=== PATIENT | male | born 2000 | race Hispanic/Latino ===

== ENCOUNTER 2023-11-02 12:02 | Emergency (ER) | payer OTHER ==
[~2023-11-02] VITALS: Ht 193 cm; Wt 77.1 kg
[2023-11-02 12:04] VITALS: BP 154/88
[2023-11-02 12:34] LABS: SARS-CoV-2, RNA, NAAT NEGATIVE SARS CoV-2 (NEGATIVE)
[2023-11-02 12:41] LABS: INFLUENZA TYPE A Negative For Type A (NEGATIVE); INFLUENZA TYPE B Negative For Type B (NEGATIVE)
[2023-11-02] MEDS: IBUPROFEN 600 MG TABLET PO ONE (13:34)
[2023-11-02] MEDS: GUAIFENESIN-CODEINE 5 ML SYRUP PO ONE (13:34)
[2023-11-02] MEDS ORDERED: ALBU18HF7 IH (13:49)
[2023-11-02] MEDS ORDERED: medrol dose pack PO (13:49)
[2023-11-02] MEDS ORDERED: GUAI200T5 PO (13:55)
[2023-11-02] MEDS ORDERED: AZIT250T9 PO (13:59)
[2023-11-02] MEDS: ALBUTEROL 0.083% 2.5 MG/3 ML INH IH ONE (14:05)
[2023-11-02 14:06] VITALS: PULSE 93; RESP 20
== END 2023-11-02 14:23 | disposition home or self-care (01) ==
LOC: EEVIPCON 12:02 → EDH 12:02
DX: J20.8 Acute bronchitis due to other specified organisms (principal); K40.90 Unilateral inguinal hernia, without obstruction or gangrene, not specified as recurrent; F17.200 Nicotine dependence, unspecified, uncomplicated; Z20.822 Contact with and (suspected) exposure to COVID-19; Z98.890 Other specified postprocedural states; Z88.1 Allergy status to other antibiotic agents
CPT/HCPCS: 71045; 87635; 87804; 94640

== ENCOUNTER 2024-05-09 20:03 | Emergency (ER) | payer BC ==
[~2024-05-09] VITALS: Ht 190.5 cm; Wt 72.6 kg
[~2024-05-09 20:03] MED LIST: ALBU18HF7 IH; AZIT250T9 PO; GUAI200T5 PO; METH8TAB PO; medrol dose pack PO
[2024-05-09 20:48] VITALS: BP 116/65; PULSE 78; RESP 20; TEMP 98.8; O2SAT 98
[2024-05-09 21:09] LABS: COVID19 (SARS ANTIGEN RAPID) PRESUMPTIVE NEGATIVE (NEGATIVE); INFLUENZA TYPE A Negative For Type A (NEGATIVE); INFLUENZA TYPE B Negative For Type B (NEGATIVE)
--- NOTE | 2024-05-09 21:28 | ERN ---
ED Note History of Present Illness Stated Complaint: SOB Chief Complaint: Adult-Asthma Time Seen by MD: 20:04 Time Seen by Midlevel: 20:04 Dictation: The patient is a 24-year-old male with a history of asthma who presents to the emergency department with complaints of shortness of breath for three months. Patient reports occasional cough and runny nose. Denies any fevers. Reports he ran out of his albuterol treatment at home. Allergies: Coded Allergies: ceftriaxone (Unverified Allergy, Unknown, SHORTNESS OF BREATH, 11/02/23) Home Meds Active Scripts Albuterol Sulfate (Ventolin Hfa/Proventil Hfa/Proair Hfa) 90 Mcg Puff, 2 PUFF IH Q4H PRN for SHORTNESS OF BREATH/WHEEZING for 30 Days, #1 INH 0 Refills Prov:TORI BRIGGS 05/09/24 Albuterol Sulfate (Ventolin Hfa) 90 Mcg Hfa.aer.ad, 2 PUFF IH Q4HPRN PRN for wheezing for 30 Days, #18 GM 0 Refills Prov:RON COLEY MD 04/09/24 Methylprednisolone (Medrol) 8 Mg Tablet, 1 TAB PO BID for 5 Days, #10 TAB 0 Refills Prov:RON COLEY MD 04/09/24 Azithromycin (Azithromycin) 250 Mg Tablet, 250 MG PO 2 day 1 then daily for 5 Days, #6 TAB 0 Refills Prov:DANIEL LUTZ NP 11/02/23 Guaifenesin (Guaifenesin) 200 Mg Tablet, 200 MG PO q6 hour PRN for cough, #15 TAB 0 Refills Prov:DANIEL LUTZ NP 11/02/23 [medrol dose pack ] No Conflict Check, 4 MG PO DAILY for 5 Days, #1 PACK 0 Refills Prov:DANIEL LUTZ NP 11/02/23 Albuterol Sulfate (Ventolin Hfa) 90 Mcg Hfa.aer.ad, 18 GM IH 2 puffs ever 4Hr PRN for wheezing/cough, #1 INHALER 0 Refills Prov:DANIEL LUTZ NP 11/02/23 Past Medical History Past Medical History: Asthma, Other Additional Past Medical Hx: LT INGUINAL HERNIA Surgical History: None Surgical History Other: LT INGUINAL HERNIA REPAIR Social History: Smokers, Negative, Other RN Note Reviewed/Agreed w/PFSH: Yes Review of System Dictation Constitutional: Negative for fever,chills, and weight loss Eyes: Negative for injury, pain,redness, and discharge ENT: Negative for injury,pain or swelling Cardiovascular: Negative for chest pain, palpitations, and edema Respiratory: Negative for and wheezing, positive for shortness of breath, cough Abdomen/GI: Negative for abdominal pain, nausea, vomiting, diarrhea, and c onstipation Back: Negative for injury and pain : Negative for injury, bleeding and discharge MS/Extremity: Negative for injury and deformity Skin: Negative for rash, and discoloration Neuro: Negative for headache, weakness, numbness, tingling, and seizure Psych: Negative for suicide ideation, homicidal ideation, and hallucinations Initial Vital Sign VS Vital Signs Date Time Temp Pulse Resp B/P (MAP) Pulse Ox O2 Delivery O2 Flow Rate FiO2 05/09/24 20:03 98.1 63 16 139/63 100 Room Air 05/09/24 20:48 0 21 Physical Exam Dictation Vital Signs reviewed General Appearance: Alert, oriented x 3, no acute distress, well developed, nourished. Head and Face: non-traumatic. Eyes: PERRL, pink conjunctivas, eyelid no trauma, anterior chamber with arcus senilis. Ears: Pinnas intact and no signs of trauma or erythema ear canals clear and no discharge TM no erythema Nose: No discharge, no bleeding. Oropharynx: Mouth normal, tongue pink. pharynx clear,no erythema, tonsils no exudates, no abscesses noted, mucous membrane moist Neck: Supple, non-tender, no thyromegaly, no masses, no JVD, no bruits Breast:Deferred Chest:No tenderness, no crepitus, no paradoxical movement, no retractions Lungs:Clear, well-ventilated, symmetric, no rales, no wheezing, no rhonchi, no stridor, good breath sounds bilaterally Heart: Regular rate, regular rhythm, no murmur, no gallops Vascular: no peripheral edema, Abdomen: Soft, positive bowel sounds, nondistended, no guarding, nontender, no rebound, no masses no hepatomegaly, no splenomegaly, no Martinez's sign, no hernias. Rectal: Deferred Genital: Deferred Neurological: Normal speech, motor function intact, sensory function intact Musculoskeletal: Neck nontender, full range of motion, back nontender, full range of motion, Extremities: nontender, full range of motion Skin: Color pink, dry, no turgor, no rash, no lacerations, no abrasions, no contusions. Lymphatic: Deferred Results (Laboratory/Radiology) Laboratory/Radiology Laboratory Tests Test 05/09/24 20:44 Influenza Type A Antigen Negative For Type A Influenza Type B Antigen Negative For Type B SARS-CoV-2 Antigen (Rapid) PRESUMPTIVE NEGATIVE Labs Reviewed?: Yes ED Course ED Course Orders Procedure Category Date Status Time Influenza Type A & B, LAB 05/09/24 Complete Rapid 20:33 Covid19 (Sars Antigen LAB 05/09/24 Complete Rapid) 20:33 Albuterol 0.083% PHA 05/09/24 Complete 2.5mg/3ml (Proventil 21:30 Current Medications Medications (Trade) Dose Ordered Sig/Ignacio Route PRN Reason Start Time Stop Time Status Last Admin Dose Admin Albuterol Sulfate (Proventil 0.083% 2.5mg/3ml) 2.5MG ONCE ONCE IH 05/09/24 21:30 05/09/24 21:33 DC Vital Signs Date Time Temp Pulse Resp B/P (MAP) Pulse Ox O2 Delivery O2 Flow Rate FiO2 05/09/24 20:48 98.8 78 20 116/65 98 Room Air* 0 21 05/09/24 20:03 98.1 63 16 139/63 100 Room Air Medical Decision Making MDM The patient is a 24-year-old male with a history of asthma who presents to the emergency department with complaints of shortness of breath for three months. Patient reports occasional cough and runny nose. Denies any fevers. Reports he ran out of his albuterol treatment at home. Serology negative. Patient with no acute distress. No wheezing. Differential diagnosis: Pneumonia, pneumothorax, upper respiratory infection, asthma exacerbation Patient eloped from ER. DX & DISP Disposition: AMA Departure Condition: Stable Scripts Albuterol Sulfate (Ventolin Hfa/Proventil Hfa/Proair Hfa) 90 Mcg Puff 2 PUFF IH Q4H PRN for SHORTNESS OF BREATH/WHEEZING for 30 Days, #1 INH 0 Refills Prov: TORI BRIGGS 05/09/24 Referrals: [facility] [employer] (PCP) TORI BRIGGS May 09, 2024 21:28
[2024-05-09] MEDS ORDERED: ALBUTEROL 0.083% 2.5 MG/3 ML INH IH ONE (21:30)
[2024-05-09] MEDS ORDERED: ALBUHFA IH (21:31)
--- NOTE | 2024-05-09 21:58 | NUR ---
CALLED FOR XRAY. PER LILIANA FROM LAB. PT SHIELA
--- NOTE | 2024-05-09 22:00 | NUR ---
PATIENT NOT FOUND IN LOBBY, ER OR RESTROOM. NO IV IN PLACE.
--- NOTE | 2024-05-09 22:07 | NUR ---
PT CALLED, NOT IN LOBBY, NOT IN MAIN ER
== END 2024-05-09 22:08 | disposition left against medical advice (07) ==
LOC: EDH 20:03
DX: R06.02 Shortness of breath (principal); R05.9 Cough, unspecified; R09.89 Other specified symptoms and signs involving the circulatory and respiratory systems; F17.200 Nicotine dependence, unspecified, uncomplicated; J45.909 Unspecified asthma, uncomplicated; Z79.52 Long term (current) use of systemic steroids; Z88.1 Allergy status to other antibiotic agents; Z20.822 Contact with and (suspected) exposure to COVID-19
CPT/HCPCS: 87426; 87804; 99283

== ENCOUNTER 2024-08-26 19:01 | Emergency (ER) | payer SELFPAY ==
[~2024-08-26] VITALS: Ht 190.5 cm; Wt 61.2 kg
[~2024-08-26 19:01] MED LIST changes: +ALBUHFA IH; +AUD IH
--- NOTE | 2024-08-26 19:14 | ERN ---
ED Note History of Present Illness Stated Complaint: ASTHMA Time Seen by MD: :02 Time Seen by Midlevel: :02 Dictation: The patient is a 24-year-old male with a history of asthma who presents to the emergency department with complaints of shortness of breath and nasal congestion onset 5:00 p.m.. Patient is also requesting a refill for his albuterol treatment. Denies any fevers, cough, ear pain or sore throat. Allergies: Coded Allergies: ceftriaxone (Unverified Allergy, Unknown, SHORTNESS OF BREATH, 11/02/23) Home Meds Active Scripts Albuterol Sulfate (Albuterol Sulfate) 2.5 Mg/0.5 Ml Vial.neb, 2.5 MG IH Q6H for wheezing/sob, #20 INH 0 Refills Prov:ALFREDO AGRCIA DOUBLE BACKER 06/29/24 Albuterol Sulfate (Ventolin Hfa/Proventil Hfa/Proair Hfa) 90 Mcg Puff, 2 PUFF IH Q4H PRN for SHORTNESS OF BREATH/WHEEZING for 30 Days, #1 INH 0 Refills Prov:TORI BRIGGSP 05/09/24 Albuterol Sulfate (Ventolin Hfa) 90 Mcg Hfa.aer.ad, 2 PUFF IH Q4HPRN PRN for wheezing for 30 Days, #18 GM 0 Refills Prov:RON COLEY MD 04/09/24 Methylprednisolone (Medrol) 8 Mg Tablet, 1 TAB PO BID for 5 Days, #10 TAB 0 Refills Prov:RON COLEY MD 04/09/24 Azithromycin (Azithromycin) 250 Mg Tablet, 250 MG PO 2 day 1 then daily for 5 Days, #6 TAB 0 Refills Prov:DANIEL LUTZ NP 11/02/23 Guaifenesin (Guaifenesin) 200 Mg Tablet, 200 MG PO q6 hour PRN for cough, #15 TAB 0 Refills Prov:DANIEL LUTZ NP 11/02/23 [medrol dose pack ] No Conflict Check, 4 MG PO DAILY for 5 Days, #1 PACK 0 Refills Prov:DANIEL LUTZ NP 11/02/23 Albuterol Sulfate (Ventolin Hfa) 90 Mcg Hfa.aer.ad, 18 GM IH 2 puffs ever 4Hr PRN for wheezing/cough, #1 INHALER 0 Refills Prov:DANIEL LUTZ DOUBLE BACKER 11/02/23 Past Medical History Past Medical History: Asthma, Other Additional Past Medical Hx: LT INGUINAL HERNIA Surgical History: None Surgical History Other: LT INGUINAL HERNIA REPAIR Social History: Smokers, Negative, Other RN Note Reviewed/Agreed w/PFSH: Yes Review of System Dictation Constitutional: Negative for fever,chills, and weight loss Eyes: Negative for injury, pain,redness, and discharge ENT: Negative for injury,pain or swelling Cardiovascular: Negative for chest pain, palpitations, and edema Respiratory: Negative for cough, and wheezing, positive for shortness of breath Abdomen/GI: Negative for abdominal pain, nausea, vomiting, diarrhea, and constipation Back: Negative for injury and pain : Negative for injury, bleeding and discharge MS/Extremity: Negative for injury and deformity Skin: Negative for rash, and discoloration Neuro: Negative for headache, weakness, numbness, tingling, and seizure Psych: Negative for suicide ideation, homicidal ideation, and hallucinations Initial Vital Sign VS Vital Signs Date Time Temp Pulse Resp B/P (MAP) Pulse Ox O2 Delivery O2 Flow Rate FiO2 08/26/24 19:15 99.1 87 20 128/83 96 Room Air 08/26/24 19:59 0 21 Physical Exam Dictation Vital Signs reviewed General Appearance: Alert, oriented x 3, no acute distress, well developed, nourished. Head and Face: non-traumatic. Eyes: PERRL, pink conjunctivas, eyelid no trauma, anterior chamber with arcus senilis. Ears: Pinnas intact and no signs of trauma or erythema ear canals clear and no discharge TM no erythema Nose: No discharge, no bleeding. Oropharynx: Mouth normal, tongue pink. pharynx clear,no erythema, tonsils no exudates, no abscesses noted, mucous membrane moist Neck: Supple, non-tender, no thyromegaly, no masses, no JVD, no bruits Breast:Deferred Chest:No tenderness, no crepitus, no paradoxical movement, no retractions Lungs:Clear, well-ventilated, symmetric, no rales, no wheezing, no rhonchi, no stridor, good breath sounds bilaterally Heart: Regular rate, regular rhythm, no murmur, no gallops Vascular: no peripheral edema, Abdomen: Soft, positive bowel sounds, nondistended, no guarding, nontender, no rebound, no masses no hepatomegaly, no splenomegaly, no Martinez's sign, no hernias. Rectal: Deferred Genital: Deferred Neurological: Normal speech, motor function intact, sensory function intact Musculoskeletal: Neck nontender, full range of motion, back nontender, full range of motion, Extremities: nontender, full range of motion Skin: Color pink, dry, no turgor, no rash, no lacerations, no abrasions, no contusions. Lymphatic: Deferred Results (Laboratory/Radiology) Laboratory/Radiology Laboratory Tests Test 08/26/24 19:17 Influenza Type A Antigen Negative For Type A Influenza Type B Antigen Negative For Type B SARS-CoV-2 Antigen (Rapid) PRESUMPTIVE NEGATIVE REASON: sob ORDERING PHYSICIAN: TORI BRIGGS PROCEDURE: CXR1VW - CHEST 1VW CHEST 1VW HISTORY: Shortness of breath COMPARISON: 11/02/2023 FINDINGS: A frontal projection of the chest was obtained. No acute pulmonary infiltrates is seen. The heart is normal in size. Prominent interstitial markings are seen. No evidence of aortic calcification is seen. IMPRESSION: 1. No acute pulmonary infiltrate is seen. Labs Reviewed?: Yes ED Course ED Course Orders Procedure Category Date Status Time Chest 1vw RAD 08/26/24 Resulted 19:09 Covid19 (Sars Antigen LAB 08/26/24 Complete Rapid) 19:09 Influenza Type A & B, LAB 08/26/24 Complete Rapid 19:09 Albuterol 0.083% PHA 08/26/24 Complete 2.5mg/3ml (Proventil 19:30 Methylprednisolone PHA 08/26/24 Complete Succ 125mg (Solu-Medr 19:30 Current Medications Medications (Trade) Dose Ordered Sig/Ignacio Route PRN Reason Start Time Stop Time Status Last Admin Dose Admin Albuterol Sulfate (Proventil 0.083% 2.5mg/3ml) 2.5MG ONCE ONCE IH 08/26/24 19:30 08/26/24 19:31 DC Methylprednisolone Sodium Succinate (Solu-medROL 125MG) 125 mg ONCE ONCE IM 08/26/24 19:30 08/26/24 19:31 DC 08/26/24 19:54 Vital Signs Date Time Temp Pulse Resp B/P (MAP) Pulse Ox O2 Delivery O2 Flow Rate FiO2 08/26/24 19:59 98.1 80 17 145/86 98 Room Air* 0 21 08/26/24 19:15 99.1 87 20 128/83 96 Room Air Medical Decision Making MDM The patient is a 24-year-old male with a history of asthma who presents to the emergency department with complaints of shortness of breath and nasal congestion onset 5:00 p.m.. Patient is also requesting a refill for his albuterol treatment. Denies any fevers, cough, ear pain or sore throat. Serology negative. Chest x-ray showed no acute infiltrates. Patient in no acute distress, nontoxic appearance. Clear lung sounds. Patient requested refill for his albuterol treatment. Has been seen here for refill. Patient will be discharged and instructed to follow up with PCP. Differential diagnosis: Asthma exacerbation, pneumonia, pneumothorax, upper respiratory infection Need for hospitalization: Patient does not meet criteria for hospitalization. There are no social concerns with this patient. DX & DISP Disposition: Discharge Departure Impression: Primary Impression: Asthma attack Additional Impression: Encounter for medication refill Condition: Stable Scripts Albuterol Sulfate (Albuterol Sulfate) 2.5 Mg/0.5 Ml Vial.neb 2.5 MG IH Q6H for wheezing/sob, #20 INH 0 Refills Prov: TORI BRIGGS TWO NEEDLE MACHINE OPERATOR 08/26/24 Additional Instructions: Please follow up with your primary doctor in 1-2 days. Taking medications as prescribed. If symptoms worsen please return to ER. FOLLOW-UP WITH PRIMARY CARE PROVIDER IN 1 TO 2 DAYS. TAKE MEDICATIONS DIRECTED HERE IN THE EMERGENCY ROOM. OKAY TO CONTINUE HOME MEDICATIONS UNLESS OTHERWISE DISCUSSED DURING YOUR VISIT IN THE EMERGENCY ROOM TODAY. RETURN TO YOUR NEAREST EMERGENCY ROOM IF SYMPTOMS WORSEN OR IF THERE IS NO IMPROVEMENT. CALL 911 IF YOU NEED IMMEDIATE ASSISTANCE. TAKE TYLENOL OR MOTRIN [id number] NEEDED AND IF NO CONTRAINDICATIONS ARE PRESENT. INCREASE OR AL HYDRATION. A WOUND CULTURE OR URINE CULTURE WAS ORDERED HERE IN THE EMERGENCY ROOM DEPARTMENT PLEASE FOLLOW-UP WITH PRIMARY CARE PROVIDER AND ADVISE THEM TO GET REPEAT PORTS FROM OUR FACILITY. IF YOU HAD ANY HARINI WRAP/SPLINTS THAT WERE APPLIED HERE, PLEASE DO NOT REMOVE THEM UNTIL YOU SEE YOUR PRIMARY CARE OR SPECIALTY. Referrals: [facility] (PCP) Time of Disposition: 20:29 I have reviewed the case, and I agree with, Diagnosis and Plan TORI BRIGGS [facility] August 26, 2024 19:14
--- NOTE | 2024-08-26 19:51 | NUR ---
PT CARE ASSUMED AT THIS TIME
[2024-08-26 19:53] LABS: COVID19 (SARS ANTIGEN RAPID) PRESUMPTIVE NEGATIVE (NEGATIVE); INFLUENZA TYPE A Negative For Type A (NEGATIVE); INFLUENZA TYPE B Negative For Type B (NEGATIVE)
[2024-08-26] MEDS: Solu-medROL 125MG VIAL IM ONE (19:54)
--- NOTE | 2024-08-26 20:23 | HMCIMG ---
CHEST 1VW HISTORY: Shortness of breath COMPARISON: 11/02/2023 FINDINGS: A frontal projection of the chest was obtained. No acute pulmonary infiltrates is seen. The heart is normal in size. Prominent interstitial markings are seen. No evidence of aortic calcification is seen. IMPRESSION: 1. No acute pulmonary infiltrate is seen.
[2024-08-26] MEDS ORDERED: AUD IH (20:31)
[2024-08-26] MEDS: ALBUTEROL 0.083% 2.5 MG/3 ML INH IH ONE (20:47)
[2024-08-26 20:48] VITALS: PULSE 78; RESP 20
[2024-08-26 20:55] VITALS: BP 138/74; PULSE 69; RESP 18; TEMP 98.1; O2SAT 100
== END 2024-08-26 21:06 | disposition home or self-care (01) ==
LOC: EDH 19:01
DX: J45.909 Unspecified asthma, uncomplicated (principal); F17.200 Nicotine dependence, unspecified, uncomplicated; Z79.52 Long term (current) use of systemic steroids; Z88.1 Allergy status to other antibiotic agents; Z76.0 Encounter for issue of repeat prescription; Z20.822 Contact with and (suspected) exposure to COVID-19
CPT/HCPCS: 99284; 71045; 87426; 87804 ×2; 96372; 94640; J2919

== ENCOUNTER 2024-10-23 06:53 | Emergency (ER) | payer SELFPAY ==
[~2024-10-23] VITALS: Ht 190.5 cm; Wt 60.3 kg
--- NOTE | 2024-10-23 07:13 | NUR ---
AT THIS TIME NO SIGNS OR SYMPTOMS OF ACUTE RESPIRATORY DISTRESS
--- NOTE | 2024-10-23 07:23 | ERN ---
General Chief Complaint: Adult-Asthma Stated Complaint: C/O PROBLEM BREATHING, ASTHMA Time Seen by MD: 07:00 Source: patient History of Present Illness Initial Comments Patient is a 24-year-old male coming in because he ran out of his inhaler. Patient states he works a lot of hours in his not been able to fill his prescription of breathing treatments. He also states that he was having a mild cough in his here for further evaluation. No fever or chills no nausea no vomiting. Allergies: Coded Allergies: ceftriaxone (Unverified Allergy, Unknown, SHORTNESS OF BREATH, 11/02/23) Home Meds Active Scripts Albuterol Sulfate (Albuterol Sulfate) 2.5 Mg/0.5 Ml Vial.neb, 2.5 MG IH Q6H for wheezing/sob, #20 INH 0 Refills Prov:TORI BRIGGS TEST RIDER 08/26/24 Albuterol Sulfate (Albuterol Sulfate) 2.5 Mg/0.5 Ml Vial.neb, 2.5 MG IH Q6H for wheezing/sob, #20 INH 0 Refills Prov:ALFREDO GARCIA FRUIT DUMPER 06/29/24 Albuterol Sulfate (Ventolin Hfa/Proventil Hfa/Proair Hfa) 90 Mcg Puff, 2 PUFF IH Q4H PRN for SHORTNESS OF BREATH/WHEEZING for 30 Days, #1 INH 0 Refills Prov:TORI BRIGGS TEST RIDER 05/09/24 Albuterol Sulfate (Ventolin Hfa) 90 Mcg Hfa.aer.ad, 2 PUFF IH Q4HPRN PRN for wh eezing for 30 Days, #18 GM 0 Refills Prov:RON COLEY MD 04/09/24 Methylprednisolone (Medrol) 8 Mg Tablet, 1 TAB PO BID for 5 Days, #10 TAB 0 Refills Prov:RON COLEY MD 04/09/24 Azithromycin (Azithromycin) 250 Mg Tablet, 250 MG PO 2 day 1 then daily for 5 Days, #6 TAB 0 Refills Prov:DANIEL LUTZ NP 11/02/23 Guaifenesin (Guaifenesin) 200 Mg Tablet, 200 MG PO q6 hour PRN for cough, #15 TAB 0 Refills Prov:DANIEL LUTZ NP 11/02/23 [medrol dose pack ] No Conflict Check, 4 MG PO DAILY for 5 Days, #1 PACK 0 Refills Prov:DANIEL LUTZ FRUIT DUMPER 11/02/23 Albuterol Sulfate (Ventolin Hfa) 90 Mcg Hfa.aer.ad, 18 GM IH 2 puffs ever 4Hr PRN for wheezing/cough, #1 INHALER 0 Refills Prov:DANIEL LUTZ FRUIT DUMPER 11/02/23 Past Medical History Past Medical History: Asthma Medical History Other: LT INGUINAL HERNIA Past Surgical History: Other Surgical History Other: HERNIA REPAIR Social History Social History: Smokers, Negative, Other ROS Dictation CONSTITUTIONAL: No chills, no fever, no weakness, no diaphoresis, no malaise. HEAD/FACE: No signs of trauma. EENT: No eye pain, no blurred vision, no tearing, no double vision, no ear pain, no ear discharge, no nose pain, no nasal congestion, no throat pain, no throat swelling, no mouth pain. RESPIRATORY: cough, no orthopnea, no SOB, no stridor, no wheezing. CARDIOVASCULAR: No chest pain, no edema, no palpitations, no syncope. GASTROINTESTINAL/ABDOMINAL: No abdominal pain, no constipation, no diarrhea, no nausea, no vomiting. GENITOURINARY: No abnormal discharge, no dysuria, no frequent urination, no hematuria. No complaints of pain in the genitals. MUSCULOSKELETAL: No back pain, no gout, no joint pain, no joint swelling, no muscle pain, no muscle stiffness, no neck pain. INTEGUMENTARY: No change in color, no change in hair/nails, no dryness, no lesion, no lumps, no rash. NEUROLOGICAL/PSYCH: No anxiety, not depressed, no emotional problem, no headache, no numbness, no pre-existing deficit, no history of seizures, no tremors, no weakness. HEMATOLOGIC/LYMPHATIC: Not anemic, no history of blood clots, no apparent bleeding, no bruising, glands not swollen. All Systems Negative, Except as Noted. Physical Exam Physical Exam Dictation VITAL SIGNS: Reviewed. GENERAL APPEARANCE: Alert, oriented x3, no acute distress, obese. HEAD AND FACE: Non-traumatic. EYES: PERRL, pink conjunctivas, eyelid no trauma, anterior chamber clear. EARS: Pinnas intact and no signs of trauma or erythema. Ear canals clear and no discharge. TMs no erythema. NOSE: No discharge, no bleeding. OROPHARYNX: Mouth normal, teeth no caries, tongue pink. Pharynx clear, no eryt abdi. Tonsils no exudates, no abscesses noted. Mucous membrane moist. NECK: Supple, non-tender, no thyromegaly, no masses, no JVD, no bruits. BREAST: Deferred. CHEST: No tenderness, no crepitus, no paradoxical movement, no retractions. LUNGS: Clear, well-ventilated, symmetric, no rales, no wheezing, no rhonchi, no stridor, good breath sounds bilaterally. HEART: Regular rate, regular rhythm, no murmur, no gallops. VASCULAR: No peripheral edema. ABDOMEN: Soft, positive bowel sounds, nondistended, no guarding, nontender, no rebound, no masses no hepatomegaly, no splenomegaly, no Martinez's sign, no hernias. RECTAL: Deferred. GENITAL: Deferred. NEUROLOGICAL: Normal speech, gross motor function intact, gross sensory function intact. MUSCULOSKELETAL: Neck nontender, full range of motion, back nontender, full range of motion. EXTREMITIES: Nontender, full range of motion. SKIN: Color pink, dry, no turgor, no rash, no lacerations, no abrasions, no contusions. LYMPHATICS: Deferred. Results Laboratory and Microbiology Labs Reviewed?: Yes MDM MDM: Differential diagnosis: History of asthma, cough, URI, Rationale: Tests considered and ordered secondary to shared decision making include: Previous outside records reviewed: Old ER visits. Risk of complication and/or morbidity or mortality of patient management: None Medications-Per medication reconciliation Need for hospitalization: Patient does not meet criteria for hospitalization. Patient is a 24-year-old male coming in to be evaluated for what he states is chronic condition. He states he has a had asthma for a while but has not had a chance to fill his prescription of albuterol because he has not been able to go to his doctor. He states that a couple of days ago he started having a mild cough. On physical exam lungs sound clear mild tightness at times breathing treatment was given did advised him appropriate follow up with PCP for long-term management. Patient will be discharged in stable condition. ED Course Orders Procedure Category Date Status Time Ipratropium/Albuterol PHA 10/23/24 In Process Neb (Amena) 07:30 Current Medications Medications (Trade) Dose Ordered Sig/Ignacio Route PRN Reason Start Time Stop Time Status Last Admin Dose Admin Albuterol (DUOneb) 1 udvial ONCE ONCE IH 10/23/24 07:30 10/23/24 07:31 Vital Signs Date Time Temp Pulse Resp B/P (MAP) Pulse Ox O2 Delivery O2 Flow Rate FiO2 10/23/24 06:55 98.8 77 20 157/76 100 Room Air DX & DISP Disposition: Discharge Departure Impression: Primary Impression: History of asthma Condition: Stable Additional Instructions: FOLLOW-UP WITH PRIMARY CARE PROVIDER IN 1 TO 2 DAYS. TAKE MEDICATIONS DIRECTED HERE IN THE EMERGENCY ROOM. OKAY TO CONTINUE HOME MEDICATIONS UNLESS OTHERWISE DISCUSSED DURING YOUR VISIT IN THE EMERGENCY ROOM TODAY. RETURN TO YOUR NEAREST EMERGENCY ROOM IF SYMPTOMS WORSEN OR IF THERE IS NO IMPROVEMENT. CALL 911 IF YOU NEED IMMEDIATE ASSISTANCE. TAKE TYLENOL [id number] NEEDED AND IF NO CONTRAINDICATIONS ARE PRESENT. INCREASE ORAL HYDRATION. A WOUND CULTURE OR URINE CULTURE WAS ORDERED HERE IN THE EMERGENCY ROOM DEPARTMENT PLEASE FOLLOW-UP WITH PRIMARY CARE PROVIDER AND ADVISE THEM TO GET REPORTS FROM OUR FACILITY. IF YOU HAD ANY HARINI WRAP/SPLINTS THAT WERE APPLIED HERE, PLEASE DO NOT REMOVE THEM UNTIL YOU SEE YOUR PRIMARY CARE OR SPECIALTY. Referrals: Referrals: SELF,REFERRAL (PCP) TERRI JAY MD Time of Disposition: 07:00 RON COLEY MD Oct 23, 2024 07:23
[2024-10-23 07:48] VITALS: BP 149/70; TEMP 98.8; O2SAT 100
[2024-10-23 08:02] VITALS: PULSE 68; RESP 18
[2024-10-23] MEDS: ALBUTEROL INHALER 90MCG/INH IH ONE (08:09)
[2024-10-23] MEDS ORDERED: INHALER, ASSIST DEVICE 1 EA IH SCH (08:30)
== END 2024-10-23 08:10 | disposition home or self-care (01) ==
LOC: EDH 06:53 → EEVIPCON 06:53 → EDH 08:10
DX: J45.909 Unspecified asthma, uncomplicated (principal); F17.200 Nicotine dependence, unspecified, uncomplicated; Z79.52 Long term (current) use of systemic steroids; Z88.1 Allergy status to other antibiotic agents; Z98.890 Other specified postprocedural states
CPT/HCPCS: 94640; 99283

== ENCOUNTER → 2025-02-05 | Emergency (ER) | payer SELFPAY ==
[~2025-02-05] VITALS: Ht 190.5 cm; Wt 83.9 kg
[2025-02-05 16:31] VITALS: BP 140/75; PULSE 79; RESP 20; TEMP 97.6; O2SAT 99
--- NOTE | 2025-02-05 16:33 | ERN ---
ED Note History of Present Illness Stated Complaint: ASTHMA EXACERBATION Chief Complaint: Adult-Asthma Time Seen by MD: 16:26 Dictation: PATIENT IS A 25-YEAR-OLD MALE WHO IS WELL KNOWN TO [facility] COMPLAINING OF RUNNING OUT OF HIS EMERGENCY INHALER REFILL THREE DAYS AGO. 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 SAID HE RAN OUT THREE DAYS AGO. NO FEVER NO CHILLS NO NAUSEA VOMITING NO COUGH. HE DOES NOT HAVE A PRIMARY CARE DOCTOR BECAUSE HE JUST GOT OUT OF RETIREMENT AND DOES NOT HAVE INSURANCE OR A MEANS TO PAY FOR HIS HEALTH CARE. BILATERAL BREATH SOUNDS CLEAR TO AUSCULTATION SATURATION 99-100% IN TRIAGE. Allergies: Coded Allergies: ceftriaxone (Unverified Allergy, Unknown, SHORTNESS OF BREATH, 11/02/23) Home Meds Active Scripts Albuterol Sulfate (Albuterol Sulfate) 2.5 Mg/0.5 Ml Vial.neb, 2.5 MG IH Q6H for wheezing/sob, #20 INH 0 Refills Prov:TORI BRIGGS [facility] 08/26/24 Albuterol Sulfate (Albuterol Sulfate) 2.5 Mg/0.5 Ml Vial.neb, 2.5 MG IH Q6H for wheezing/sob, #20 INH 0 Refills Prov:ALFREDO GARCIA MANAGER EMBAL[employer] FUNERAL DIRECTOR 06/29/24 Albuterol Sulfate (Ventolin Hfa/Proventil Hfa/Proair Hfa) 90 Mcg Puff, 2 PUFF IH Q4H PRN for SHORTNESS OF BREATH/WHEEZING for 30 Days, #1 INH 0 Refills Prov:TORI BRIGGS [facility] 05/09/24 Albuterol Sulfate (Ventolin Hfa) 90 Mcg Hfa.aer.ad, 2 PUFF IH Q4HPRN PRN for wheezing for 30 Days, #18 GM 0 Refills Prov:RON COLEY MD 04/09/24 Methylprednisolone (Medrol) 8 Mg Tablet, 1 TAB PO BID for 5 Days, #10 TAB 0 Refills Prov:RON COLEY MD 04/09/24 Azithromycin (Azithromycin) 250 Mg Tablet, 250 MG PO 2 day 1 then daily for 5 Days, #6 TAB 0 Refills Prov:DANIEL LUTZ [facility] 11/02/23 Guaifenesin (Guaifenesin) 200 Mg Tablet, 200 MG PO q6 hour PRN for cough, #15 TAB 0 Refills Prov:DANIEL LUTZ [facility] 11/02/23 [medrol dose pack ] No Conflict Check, 4 MG PO DAILY for 5 Days, #1 PACK 0 Refills Prov:DNAIEL LUTZ [facility] 11/02/23 Albuterol Sulfate (Ventolin Hfa) 90 Mcg Hfa.aer.ad, 18 GM IH 2 puffs ever 4Hr PRN for wheezing/cough, #1 INHALER 0 Refills Prov:DANIEL LUTZ [facility] 11/02/23 Past Medical History Past Medical History: Asthma Additional Past Medical Hx: LT INGUINAL HERNIA Surgical History: None Surgical History Other: HERNIA SX Social History: Smokers, Negative, Other RN Note Reviewed/Agreed w/PFSH: Yes Review of System Dictation CONSTITUTIONAL: NEGATIVE EXCEPT FOR HPI HEAD/FACE: NEGATIVE EXCEPT FOR HPI EENT: NEGATIVE EXCEPT FOR HPI RESPIRATORY: NEGATIVE EXCEPT FOR HPI GASTROINTESTINAL/ABDOMINAL: NEGATIVE EXCEPT FOR HPI GENITOURINARY: NEGATIVE EXCEPT FOR HPI MUSCULOSKELETAL: NEGATIVE EXCEPT FOR HPI INTEGUMENTARY: NEGATIVE EXCEPT FOR HPI NEUROLOGICAL/PSYCH: NEGATIVE EXCEPT FOR HPI HEMATOLOGIC/LYMPHATIC: NEGATIVE EXCEPT FOR HPI ALL SYSTEMS NEGATIVE, EXCEPT NOTED ABOVE. 13 POINT REVIEW OF SYSTEMS ASSESSED AND ALL NEGATIVE EXCEPT FOR ABOVE. Initial Vital Sign VS Vital Signs Date Time Temp Pulse Resp B/P (MAP) Pulse Ox O2 Delivery O2 Flow Rate FiO2 02/05/25 16:25 97.5 79 20 140/75 99 Room Air Physical Exam Dictation VITAL SIGNS REVIEWED GENERAL APPEARANCE: ALERT, ORIENTED X 3, NO ACUTE DISTRESS, WELL DEVELOPED, NOURISHED. HEAD AND FACE: NON-TRAUMATIC. EYES: PERRL, PINK CONJUNCTIVAS, EYELID NO TRAUMA, ANTERIOR CHAMBER WITH ARCUS SENILIS. EARS: PINNAS INTACT AND NO SIGNS OF TRAUMA OR ERYTHEMA EAR CANALS CLEAR AND NO DISCHARGE TM NO ERYTHEMA NOSE: NO DISCHARGE, NO BLEEDING. OROPHARYNX: MOUTH NORMAL, TONGUE PINK, PHARYNX CLEAR,NO ERYTHEMA, TONSILS NO EXUDATES, NO ABSCESSES NOTED, MUCOUS MEMBRANE MOIST NECK: SUPPLE, NON-TENDER, NO THYROMEGALY, NO MASSES, NO JVD, NO BRUITS BREAST:DEFERRED CHEST:NO TENDERNESS, NO CREPITUS, NO PARADOXICAL MOVEMENT, NO RETRACTIONS LUNGS:CLEAR, WELL-VENTILATED, SYMMETRIC, NO RALES, NO WHEEZING, NO RHONCHI, NO STRIDOR, GOOD BREATH SOUNDS BILATERALLY HEART: REGULAR RATE, REGULAR RHYTHM, NO MURMUR, NO GALLOPS VASCULAR: NO PERIPHERAL EDEMA, ABDOMEN: SOFT, POSITIVE BOWEL SOUNDS, NONDISTENDED, NO GUARDING, NONTENDER, NO REBOUND, NO MASSES NO HEPATOMEGALY, NO SPLENOMEGALY, NO PALACIOS'S SIGN, NO HERNIAS. RECTAL: DEFERRED GENITAL: DEFERRED NEUROLOGICAL: NORMAL SPEECH, MOTOR FUNCTION INTACT, SENSORY FUNCTION INTACT MUSCULOSKELETAL: NECK NONTENDER, FULL RANGE OF MOTION, BACK NONTENDER, FULL RANGE OF MOTION, EXTREMITIES: NONTENDER, FULL RANGE OF MOTION SKIN: COLOR PINK, DRY, NO TURGOR, NO RASH, NO LACERATIONS, NO ABRASIONS, NO CONTUSIONS. LYMPHATIC: DEFERRED Results (Laboratory/Radiology) Labs Reviewed?: Yes ED Course ED Course Vital Signs Date Time Temp Pulse Resp B/P (MAP) Pulse Ox O2 Delivery O2 Flow Rate FiO2 02/05/25 16:25 97.5 79 20 140/75 99 Room Air 1630/NO LABS OR IMAGING INDICATED. PATIENT HERE FOR ENCOUNTER FOR MEDICATION REFILL WE WILL BE GIVEN ALBUTEROL AND TOLD TO SEE HIS DOCTOR. PRIMARY CARE DOCTORS ON STAFF LIST WAS PROVIDED TO PATIENT Medical Decision Making MDM MEDICAL DECISION-MAKING BASED ON ENCOUNTER FOR MEDICATION REFILL NO IMAGING OR LABS INDICATED PATIENT DISCHARGED HOME WITH A ALBUTEROL REFILL DX & DISP Disposition: Discharge Departure Impression: Primary Impression: Encounter for medication refill Additional Impression: History of asthma Condition: Stable Scripts Albuterol Sulfate (Ventolin Hfa/Proventil Hfa/Proair Hfa) 90 Mcg Puff 2 PUFF IH Q4H for WHEEZING, #1 INHALER 1 Refill Prov: ALFREDO GARCIA 02/05/25 Additional Instructions: FOLLOW-UP WITH PRIMARY CARE PROVIDER IN 1 TO 2 DAYS. TAKE MEDICATIONS DIRECTED HERE IN THE EMERGENCY ROOM. OKAY TO CONTINUE HOME MEDICATIONS UNLESS OTHERWISE DISCUSSED DURING YOUR VISIT IN THE EMERGENCY ROOM TODAY. RETURN TO YOUR NEAREST EMERGENCY ROOM IF SYMPTOMS WORSEN OR IF THERE IS NO IMPROVEMENT. CALL 911 IF YOU NEED IMMEDIATE ASSISTANCE. TAKE TYLENOL OR MOTRIN OVER-THE-C OUNTER NEEDED AND IF NO CONTRAINDICATIONS ARE PRESENT. INCREASE ORAL HYDRATION. A WOUND CULTURE OR URINE CULTURE WAS ORDERED HERE IN THE EMERGENCY ROOM DEPARTMENT PLEASE FOLLOW-UP WITH PRIMARY CARE PROVIDER AND ADVISE THEM TO GET REPEAT PORTS FROM OUR FACILITY. IF YOU HAD ANY HARINI WRAP/SPLINTS THAT WERE APPLIED HERE, PLEASE DO NOT REMOVE THEM UNTIL YOU SEE YOUR PRIMARY CARE OR SPECIALTY. Referrals: SELF,REFERRAL (PCP) Time of Disposition: 16:32 I have reviewed the case, and I agree with, Diagnosis and Plan ALFREDO GARCIA MANAGER EMBALMER FUNERAL DIRECTOR Feb 05, 2025 16:33
== END ==
LOC: EDH 16:24
DX: J45.909 Unspecified asthma, uncomplicated (principal); F17.200 Nicotine dependence, unspecified, uncomplicated; Z76.0 Encounter for issue of repeat prescription; Z88.1 Allergy status to other antibiotic agents; Z79.52 Long term (current) use of systemic steroids
CPT/HCPCS: 99282

== ENCOUNTER 2025-02-27 07:13 | Emergency (ER) | payer SELFPAY ==
[~2025-02-27] VITALS: Ht 190.5 cm; Wt 74.8 kg
--- NOTE | 2025-02-27 07:16 | NUR ---
PT IN ROOM
--- NOTE | 2025-02-27 07:28 | ERN ---
General Chief Complaint: Adult-Asthma Stated Complaint: SOB/ ASTHMA ATTACK Time Seen by MD: 07:16 Source: patient History of Present Illness Initial Comments Patient is a 25-year-old male coming in stating he ran out of his asthma medication. He states that he has been having a mild asthma attack in his here for further evaluation. Allergies: Coded Allergies: ceftriaxone (Unverified Allergy, Unknown, SHORTNESS OF BREATH, 11/02/23) Home Meds Active Scripts Albuterol Sulfate (Ventolin Hfa/Proventil Hfa/Proair Hfa) 90 Mcg Puff, 2 PUFF IH Q4H for WHEEZING, #1 INHALER 1 Refill Prov:ALFREDO GARCIA [employer] SERV[employer] TECHNICIAN 02/05/25 Albuterol Sulfate (Albuterol Sulfate) 2.5 Mg/0.5 Ml Vial.neb, 2.5 MG IH Q6H for wheezing/sob, #20 INH 0 Refills Prov:TORI BRIGGS [employer] SERV[employer] TECHNICIAN 08/26/24 Albuterol Sulfate (Albuterol Sulfate) 2.5 Mg/0.5 Ml Vial.neb, 2.5 MG IH Q6H for wheezing/sob, #20 INH 0 Refills Prov:ALFREDO GARCIA [employer] SERVICE TECHNICIAN 06/29/24 Albuterol Sulfate (Ventolin Hfa/Proventil Hfa/Proair Hfa) 90 Mcg Puff, 2 PUFF IH Q4H PRN for SHORTNESS OF BREATH/WHEEZING for 30 Days, #1 INH 0 Refills Prov:TORI BRIGGS [employer] SERV[employer] TECHNICIAN 05/09/24 Albuterol Sulfate (Ventolin Hfa) 90 Mcg Hfa.aer.ad, 2 PUFF IH Q4HPRN PRN for wheezing for 30 Days, #18 GM 0 Refills Prov:RON COLEY MD 04/09/24 Methylprednisolone (Medrol) 8 Mg Tablet, 1 TAB PO BID for 5 Days, #10 TAB 0 Refills Prov:RON COLEY MD 04/09/24 Azithromycin (Azithromycin) 250 Mg Tablet, 250 MG PO 2 day 1 then daily for 5 Days, #6 TAB 0 Refills Prov:DANIEL LUTZP 11/02/23 Guaifenesin (Guaifenesin) 200 Mg Tablet, 200 MG PO q6 hour PRN for cough, #15 TAB 0 Refills Prov:DANIEL LUTZ [facility] 11/02/23 [medrol dose pack ] No Conflict Check, 4 MG PO DAILY for 5 Days, #1 PACK 0 R efills Prov:DANIEL LUTZ [facility] 11/02/23 Albuterol Sulfate (Ventolin Hfa) 90 Mcg Hfa.aer.ad, 18 GM IH 2 puffs ever 4Hr PRN for wheezing/cough, #1 INHALER 0 Refills Prov:DANIEL LUTZ [facility] 11/02/23 Past Medical History Past Medical History: Asthma Medical History Other: LT INGUINAL HERNIA Past Surgical History: None Surgical History Other: HERNIA SX Social History Social History: Smokers, Negative, Other ROS Dictation CONSTITUTIONAL: No chills, no fever, no weakness, no diaphoresis, no malaise. HEAD/FACE: No signs of trauma. EENT: No eye pain, no blurred vision, no tearing, no double vision, no ear pain, no ear discharge, no nose pain, no nasal congestion, no throat pain, no throat swelling, no mouth pain. RESPIRATORY: No cough, no orthopnea, SOB, no stridor, wheezing. CARDIOVASCULAR: No chest pain, no edema, no palpitations, no syncope. GASTROINTESTINAL/ABDOMINAL: No abdominal pain, no constipation, no diarrhea, no nausea, no vomiting. GENITOURINARY: No abnormal discharge, no dysuria, no frequent urination, no hematuria. No complaints of pain in the genitals. MUSCULOSKELETAL: No back pain, no gout, no joint pain, no joint swelling, no muscle pain, no muscle stiffness, no neck pain. INTEGUMENTARY: No change in color, no change in hair/nails, no dryness, no lesion, no lumps, no rash. NEUROLOGICAL/PSYCH: No anxiety, not depressed, no emotional problem, no headache, no numbness, no pre-existing deficit, no history of seizures, no tremors, no weakness. HEMATOLOGIC/LYMPHATIC: Not anemic, no history of blood clots, no apparent bleeding, no bruising, glands not swollen. All Systems Negative, Except as Noted. Physical Exam Physical Exam Dictation VITAL SIGNS: Reviewed. GENERAL APPEARANCE: Alert, oriented x3, no acute distress, obese. HEAD AND FACE: Non-traumatic. EYES: PERRL, pink conjunctivas, eyelid no trauma, anterior chamber clear. EARS: Pinnas intact and no signs of trauma or erythema. Ear canals clear and no discharge. TMs no erythema. NOSE: No discharge, no bleeding. OROPHARYNX: Mouth normal, teeth no caries, tongue pink. Pharynx clear, no erythema. Tonsils no exudates, no abscesses noted. Mucous membrane moist. NECK: Supple, non-tender, no thyromegaly, no masses, no JVD, no bruits. BREAST: Deferred. CHEST: No tenderness, no crepitus, no paradoxical movement, no retractions. LUNGS: Clear, well-ventilated, symmetric, no rales, wheezing, no rhonchi, no stridor, good breath sounds bilaterally. HEART: Regular rate, regular rhythm, no murmur, no gallops. VASCULAR: No peripheral edema. ABDOMEN: Soft, positive bowel sounds, nondistended, no guarding, nontender, no rebound, no masses no hepatomegaly, no splenomegaly, no Martinez's sign, no herni as. RECTAL: Deferred. GENITAL: Deferred. NEUROLOGICAL: Normal speech, gross motor function intact, gross sensory function intact. MUSCULOSKELETAL: Neck nontender, full range of motion, back nontender, full range of motion. EXTREMITIES: Nontender, full range of motion. SKIN: Color pink, dry, no turgor, no rash, no lacerations, no abrasions, no contusions. LYMPHATICS: Deferred. Results Laboratory and Microbiology Labs Reviewed?: Yes MDM MDM: Differential diagnosis: Medication refill, history of asthma, Rationale: Tests considered and ordered secondary to shared decision making include: Previous outside records reviewed: Old ER visits. Risk of complication and/or morbidity or mortality of patient management: None Medications-Per medication reconciliation Need for hospitalization: Patient does not meet criteria for hospitalization. Need for emergency major/minor surgery: No Patient is a 25-year-old male coming in complaining of shortness of breath. He states he has a history wheezing but ran out of his medication. Patient received one breathing treatment and medication was refilled. We will be discharged in stable condition. ED Course Orders Procedure Category Date Status Time Albuterol 0.083% PHA 02/27/25 Transmitted 2.5mg/3ml (Proventil 07:30 DX & DISP Disposition: Discharge Departure Impression: Primary Impression: Encounter for medication refill Additional Impression: History of asthma Condition: Stable Scripts Albuterol Sulfate (Ventolin Hfa) 90 Mcg Hfa.aer.ad 2 PUFF IH Q4HPRN PRN for wheezing for 30 Days, #18 GM 0 Refills Prov: RON COLEY MD 02/27/25 Additional Instructions: FOLLOW-UP WITH PRIMARY CARE PROVIDER IN 1 TO 2 DAYS. TAKE MEDICATIONS DIRECTED HERE IN THE EMERGENCY ROOM. OKAY TO CONTINUE HOME MEDICATIONS UNLESS OTHERWISE DISCUSSED DURING YOUR VISIT IN THE EMERGENCY ROOM TODAY. RETURN TO YOUR NEAREST EMERGENCY ROOM IF SYMPTOMS WORSEN OR IF THERE IS NO IMPROVEMENT. CALL 911 IF YOU NEED IMMEDIATE ASSISTANCE. TAKE TYLENOL [id number] NEEDED AND IF NO CONTRAINDICATIONS ARE PRESENT. INCREASE ORAL HYDRATION. A WOUND CULTURE OR URINE CULTURE WAS ORDERED HERE IN THE EMERGENCY ROOM DEPARTMENT PLEASE FOLLOW-UP WITH PRIMARY CARE PROVIDER AND ADVISE THEM TO GET REPORTS FROM OUR FACILITY. IF YOU HAD ANY HARINI WRAP/SPLINTS THAT WERE APPLIED HERE, PLEASE DO NOT REMOVE THEM UNTIL YOU SEE YOUR PRIMARY CARE OR SPECIALTY. Referrals: Referrals: SELF,REFERRAL (PCP) TERRI JAY MD Time of Disposition: 07:27 RON COLEY MD Feb 27, 2025 07:28
[2025-02-27 07:38] VITALS: PULSE 78; RESP 18
[2025-02-27] MEDS: ALBUTEROL 0.083% 2.5 MG/3 ML INH IH ONE (07:38)
[2025-02-27 07:46] VITALS: BP 118/47; PULSE 77; RESP 20; TEMP 98.3; O2SAT 99
--- NOTE | 2025-02-27 07:46 | NUR ---
PT AAOX4, STABLE STATES HE CAN BREATHE BETTER AFTER RESP TREATMENT, PT GIVEN RX TO DROP OFF TO PHARMACY WILL START MEDICATION TODAY, NO IV AT THIS TIME, PT WALKED OUT TO ED LOBBY DROVE HIMSELF HOME.
== END 2025-02-27 07:48 | disposition home or self-care (01) ==
LOC: EDH 07:13
DX: J45.909 Unspecified asthma, uncomplicated (principal); Z76.0 Encounter for issue of repeat prescription; F17.200 Nicotine dependence, unspecified, uncomplicated; Z88.1 Allergy status to other antibiotic agents; Z79.52 Long term (current) use of systemic steroids
CPT/HCPCS: 94640; 99283

== ENCOUNTER 2025-03-14 06:54 | Emergency (ER) | payer SELFPAY ==
[~2025-03-14] VITALS: Ht 190.5 cm; Wt 83.9 kg
--- NOTE | 2025-03-14 07:03 | NUR ---
PATIENT IN ROOM
[2025-03-14 07:50] VITALS: PULSE 77; RESP 18
--- NOTE | 2025-03-14 07:56 | HMCIMG ---
EXAM: CR Chest, 2 View. CLINICAL HISTORY: ASTHMA COMPARISON: None provided. FINDINGS: LUNGS: There is no mass, infiltrate, or acute pulmonary abnormality. PLEURAL SPACES: No pleural effusion or pneumothorax. MEDIASTINUM: Cardiac size and mediastinal contours within normal limits. BONES: No aggressive appearing osseous lesion seen. IMPRESSION: No acute cardiopulmonary pathology is evident. /[place]
[2025-03-14 08:04] LABS: SARS-CoV-2, RNA, NAAT NEGATIVE SARS CoV-2 (NEGATIVE)
[2025-03-14 08:09] LABS: INFLUENZA TYPE A Negative For Type A (NEGATIVE); INFLUENZA TYPE B Negative For Type B (NEGATIVE)
[2025-03-14] MEDS ORDERED: ALBU18HF7 IH (08:12)
--- NOTE | 2025-03-14 08:13 | ERN ---
General Chief Complaint: Adult-Asthma Stated Complaint: SHORTNESS OF BREATH Time Seen by MD: 07:07 Source: patient History of Present Illness Initial Comments Patient is a 25-year-old male coming in complaining of shortness of breath. Patient does state that he uses inhaler and per ran out in his here for further evaluation. Patient has a history of asthma. Allergies: Coded Allergies: ceftriaxone (Unverified Allergy, Unknown, SHORTNESS OF BREATH, 11/02/23) Home Meds Active Scripts Albuterol Sulfate (Ventolin Hfa) 90 Mcg Hfa.aer.ad, 2 PUFF IH Q4HPRN PRN for wheezing for 30 Days, #18 GM 0 Refills Prov:RON COLEY MD 02/27/25 Albuterol Sulfate (Ventolin Hfa/Proventil Hfa/Proair Hfa) 90 Mcg Puff, 2 PUFF IH Q4H for WHEEZING, #1 INHALER 1 Refill Prov:ALFREDO GARCIA [employer] ADMINISTRATOR 02/05/25 Albuterol Sulfate (Albuterol Sulfate) 2.5 Mg/0.5 Ml Vial.neb, 2.5 MG IH Q6H for wheezing/sob, #20 INH 0 Refills Prov:TORI BRIGGS [facility] [employer] ADMINISTRATOR 08/26/24 Albuterol Sulfate (Albuterol Sulfate) 2.5 Mg/0.5 Ml Vial.neb, 2.5 MG IH Q6H for wheezing/sob, #20 INH 0 Refills Prov:ALFREDO GARCIA DISTRICT COURT ADMINISTRATOR 06/29/24 Albuterol Sulfate (Ventolin Hfa/Proventil Hfa/Proair Hfa) 90 Mcg Puff, 2 PUFF IH Q4H PRN for SHORTNESS OF BREATH/WHEEZING for 30 Days, #1 INH 0 Refills Prov:TORI BRIGGS [facility] ADMINISTRATOR 05/09/24 Albuterol Sulfate (Ventolin Hfa) 90 Mcg Hfa.aer.ad, 2 PUFF IH Q4HPRN PRN for wheezing for 30 Days, #18 GM 0 Refills Prov:RON COLEY MD 04/09/24 Methylprednisolone (Medrol) 8 Mg Tablet, 1 TAB PO BID for 5 Days, #10 TAB 0 Refills Prov:RON COLEY MD 04/09/24 Azithromycin (Azithromycin) 250 Mg Tablet, 250 MG PO 2 day 1 then daily for 5 Days, #6 TAB 0 Refills Prov:DANIEL LUTZ [facility] 11/02/23 Guaifenesin (Guaifenesin) 200 Mg Tablet, 200 MG PO q6 hour PRN for cough, #15 TAB 0 Refills Prov:DANIEL LUTZ [facility] 11/02/23 [medrol dose pack ] No Conflict Check, 4 MG PO DAILY for 5 Days, #1 PACK 0 Refills Prov:DANIEL LUTZ [facility] 11/02/23 Albuterol Sulfate (Ventolin Hfa) 90 Mcg Hfa.aer.ad, 18 GM IH 2 puffs ever 4Hr PRN for wheezing/cough, #1 INHALER 0 Refills Prov:DANIEL LUTZ [facility] 11/02/23 Past Medical History Past Medical History: Asthma Medical History Other: LT INGUINAL HERNIA Past Surgical History: Other Surgical History Other: HERNIA REPAIR Social History Social History: Smokers, Negative, Other ROS Dictation CONSTITUTIONAL: No chills, no fever, no weakness, no diaphoresis, no malaise. HEAD/FACE: No signs of trauma. EENT: No eye pain, no blurred vision, no tearing, no double vision, no ear pain, no ear discharge, no nose pain, no nasal congestion, no throat pain, no throat swelling, no mouth pain. RESPIRATORY: No cough, no orthopnea, SOB, no stridor, no wheezing. CARDIOVASCULAR: No chest pain, no edema, no palpitations, no syncope. GASTROINTESTINAL/ABDOMINAL: No abdominal pain, no constipation, no diarrhea, no nausea, no vomiting. GENITOURINARY: No abnormal discharge, no dysuria, no frequent urination, no hematuria. No complaints of pain in the genitals. MUSCULOSKELETAL: No back pain, no gout, no joint pain, no joint swelling, no muscle pain, no muscle stiffness, no neck pain. INTEGUMENTARY: No change in color, no change in hair/nails, no dryness, no lesion, no lumps, no rash. NEUROLOGICAL/PSYCH: No anxiety, not depressed, no emotional problem, no headache, no numbness, no pre-existing deficit, no history of seizures, no tremors, no weakness. HEMATOLOGIC/LYMPHATIC: Not anemic, no history of blood clots, no apparent bleeding, no bruising, glands not swollen. All Systems Negative, Except as Noted. Physical Exam Physical Exam Dictation VITAL SIGNS: Reviewed. GENERAL APPEARANCE: Alert, oriented x3, no acute distress, obese. HEAD AND FACE: Non-traumatic. EYES: PERRL, pink conjunctivas, eyelid no trauma, anterior chamber clear. EARS: Pinnas intact and no signs of trauma or erythema. Ear canals clear and no discharge. TMs no erythema. NOSE: No discharge, no bleeding. OROPHARYNX: Mouth normal, teeth no caries, tongue pink. Pharynx clear, no erythema. Tonsils no exudates, no abscesses noted. Mucous membrane moist. NECK: Supple, non-tender, no thyromegaly, no masses, no JVD, no bruits. BREAST: Deferred. CHEST: No tenderness, no crepitus, no paradoxical movement, no retractions. LUNGS: Clear, well-ventilated, symmetric, no rales, wheezing, no rhonchi, no stridor, good breath sounds bilaterally. HEART: Regular rate, regular rhythm, no murmur, no gallops. VASCULAR: No peripheral edema. ABDOMEN: Soft, positive bowel sounds, nondistended, no guarding, nontender, no rebound, no masses no hepatomegaly, no splenomegaly, no Martinez's sign, no hernias. RECTAL: Deferred. GENITAL: Deferred. NEUROLOGICAL: Normal speech, gross motor function intact, gross sensory function intact. MUSCULOSKELETAL: Neck nontender, full range of motion, back nontender, full range of motion. EXTREMITIES: Nontender, full range of motion. SKIN: Color pink, dry, no turgor, no rash, no lacerations, no abrasions, no contusions. LYMPHATICS: Deferred. Results Laboratory and Microbiology Lab and Micro Result Laboratory Tests Test 03/14/25 07:08 SARS-CoV-2, RNA, NAAT NEGATIVE SARS CoV-2 Labs Reviewed?: Yes EKG/XRAY/US/CT/MRI X-RAY Comment [place] [address] [place] [id number] IMAGING REPORT Signed PATIENT: ARMIDA WAKEFIELD MR#: [id number] : 2000 SEX: M AGE: 25 LOCATION: [facility] ORDER [id number] STATUS: REG ER REPORT#: [id number] SERVICE 6 REASON: ASTHMA ORDERING PHYSICIAN: RON COLEY MD PROCEDURE: CXR1VW - CHEST 1VW EXAM: CR Chest, 2 View. CLINICAL HISTORY: ASTHMA COMPARISON: None provided. FINDINGS: LUNGS: There is no mass, infiltrate, or acute pulmonary abnormality. PLEURAL SPACES: No pleural effusion or pneumothorax. MEDIASTINUM: Cardiac size and mediastinal contours within normal limits. BONES: No aggressive appearing osseous lesion seen. IMPRESSION: No acute cardiopulmonary pathology is evident. /[place] DICTATED BY: TASHA SNYDER MD DATE: 03/14/25854 ELECTRONICALLY SIGNED BY: TASHA SNYDER MD DATE: 03/14/25854 MDM MDM: Differential diagnosis: Asthma exacerbation, asthma Rationale: Tests considered and ordered secondary to shared decision making include: Previous outside records reviewed: Old ER visits. Risk of complication and/or morbidity or mortality of patient management: None Medications-Per medication reconciliation Need for hospitalization: Patient does not meet criteria for hospitalization. Need for emergency major/minor surgery: No Patient is a 25-year-old male coming in complaining of shortness of breath. Patient states he has been having shortness of breath for many years since he has a has been. Patient did have mild wheezing in the left-sided was treated with nebulized treatments we will be discharged in stable condition. ED Course Orders Procedure Category Date Status Time Ipratropium/Albuterol PHA 03/14/25 Complete Neb (Duoneb) 07:30 Methylprednisolone PHA 03/14/25 Complete Succ 125mg (Solu-Medr 07:30 Chest 1vw RAD 03/14/25 Resulted 07:07 Influenza Type A & B, LAB 03/14/25 In Process Rapid 07:31 Covid Rna Naat LAB 03/14/25 In Process 07:31 Current Medications Medications (Trade) Dose Ordered Sig/Ignacio Route PRN Reason Start Time Stop Time Status Last Admin Dose Admin Albuterol (DUOneb) 2 udvial ONCE ONCE IH 03/14/25 07:30 03/14/25 07:31 DC 03/14/25 07:54 Methylprednisolone Sodium Succinate (Solu-medROL 125MG) 125 mg ONCE ONCE IM 03/14/25 07:30 03/14/25 07:31 DC 03/14/25 07:30 Vital Signs Date Time Temp Pulse Resp B/P (MAP) Pulse Ox O2 Delivery O2 Flow Rate FiO2 03/14/25 07:05 98.2 76 18 127/76 99 Room Air* 0 21 03/14/25 07:00 98.1 70 18 127/76 98 Room Air* 0 21 03/14/25 06:57 98.2 76 18 127/76 99 DX & DISP Disposition: Discharge Departure Impression: Primary Impression: Asthma attack Condition: Stable Scripts Albuterol Sulfate (Ventolin Hfa) 90 Mcg Hfa.aer.ad 2 PUFF IH BID PRN for wheezing for 10 Days, #9 GM 0 Refills Prov: RON COLEY MD 03/14/25 Additional Instructions: FOLLOW-UP WITH PRIMARY CARE PROVIDER IN 1 TO 2 DAYS. TAKE MEDICATIONS DIRECTED HERE IN THE EMERGENCY ROOM. OKAY TO CONTINUE HOME MEDICATIONS UNLESS OTHERWISE DISCUSSED DURING YOUR VISIT IN THE EMERGENCY ROOM TODAY. RETURN TO YOUR NEAREST EMERGENCY ROOM IF SYMPTOMS WORSEN OR IF THERE IS NO IMPROVEMENT. CALL 911 IF YOU NEED IMMEDIATE ASSISTANCE. TAKE TYLENOL [id number] NEEDED AND IF NO CONTRAINDICATIONS ARE PRESENT. INCREASE ORAL HYDRATION. A WOUND CULTURE OR URINE CULTURE WAS ORDERED HERE IN THE EMERGENCY ROOM DEPARTMENT PLEASE FOLLOW-UP WITH PRIMARY CARE PROVIDER AND ADVISE THEM TO GET REPORTS FROM OUR FACILITY. IF YOU HAD ANY HARINI WRAP/SPLINTS THAT WERE APPLIED HERE, PLEASE DO NOT REMOVE THEM UNTIL YOU SEE YOUR PRIMARY CARE OR SPECIALTY. Referrals: Referrals: SELF,REFERRAL (PCP) JASON BRAVO Time of Disposition: 08:10 RON COLEY MD Mar 14, 2025 08:13
[2025-03-14 08:21] VITALS: BP 145/85; PULSE 98; RESP 15; TEMP 97.7; O2SAT 100
== END 2025-03-14 08:27 | disposition home or self-care (01) ==
LOC: EDH 06:54
DX: J45.909 Unspecified asthma, uncomplicated (principal); F17.200 Nicotine dependence, unspecified, uncomplicated; Z20.822 Contact with and (suspected) exposure to COVID-19; Z79.52 Long term (current) use of systemic steroids; Z88.1 Allergy status to other antibiotic agents; Z98.890 Other specified postprocedural states
CPT/HCPCS: 99284; 71045; 87635; 87804 ×2; 96372; 94640; J2919